=== PATIENT | male | born 1985 | race Caucasian/White ===

== ENCOUNTER 2017-12-31 14:46 | Emergency (ER) | payer SELFPAY ==
--- NOTE | 2017-12-31 15:29 | ED Physician Chart ---
ED Chief Complaint/HPI - Patient Information Date Seen:: 12/31/17 Time Seen:: 15:10 Chief Complaint:: dry, itchy feet History of Present Illness:: Patient's had dry, itchy feet for last 2 weeks. Patient was seen here yesterday under the name Andrew Lai and a CAT scan of the head and cervical spine were done and were read by the radiologist as degenerative changes in the cervical spine; no fracture was seen. Head CT was negative. 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) Review:: Nurse's Note Reviewed ED Review of Systems - Review of Systems General/Constitutional: No fever, No chills, No weight loss, No weakness, No diaphoresis, No edema, No loss of appetite Skin: Skin lesions, Other (see history and physical) Head: No headache, No light-headedness Eyes: No loss of vision, No pain, No diplopia ENT: No earache, No nasal drainage, No sore throat, No tinnitus Neck: No neck pain, No swelling, No thyromegaly, No stiffness, No mass noted Cardio Vascular: No chest pain, No palpitations, No PND, No orthopnea, No edema Pulmonary: No SOB, No cough, No sputum, No wheezing GI: No nausea, No vomiting, No diarrhea, No pain, No melena, No hematochezia, No constipation, No hematemesis G/U: No dysuria, No frequency, No hematuria Musculoskeletal: No bone or joint pain, No back pain, No muscle pain Endocrine: No polyuria, No polydipsia Psychiatric: No prior psych history, No depression, No anxiety, No suicidal ideation Hematopoietic: No bruising, No lymphadenopathy Allergic/Immuno: No urticaria, No angioedema Neurological: No syncope, No focal symptoms, No weakness, No paresthesia, No headache, No seizure, No dizziness, No confusion, No vertigo ED Past Medical History - Past Medical History Past Medical History: No significant medical hx Family History: HTN Social History: Smoker, Alcohol, Illicit Drug Use, Other Employment:: Patient drinks alcohol occasionally and uses crystal meth. Surgical History: None Psychiatricy History: None Medication: None Family Medical History - Family Member Son History Unknown: Yes ED Physical Exam - Physical Examination General/Constitutional: Awake, Well-developed, well-nourished, Alert, No distress, GCS 15, Non-toxic appearing, Ambulatory Head: Atraumatic Eyes: Lids, conjuctiva normal, PERRL, EOMI Other Skin comments:: There is dryness and peeling of the skin of the distal metatarsal arch and plantar surfaces of the toes of both feet; there is some pallor (whiteness) of the skin between the toes especially of the right foot. ENMT: External ears, nose nl, Nasal exam nl, Lips, teeth, gums nl Neck: Nontender, Full ROM w/o pain, No JVD, No nuchal rigidity, No bruit, No mass, No stridor Respiratory: Nl effort/Exclusion, Clear to Auscultation, No Wheeze/Rhonchi/Rales Cardio Vascular: RRR, No murmur, gallop, rubs, NL S1 S2 GI: No tenderness/rebounding/guarding, No organomegaly, No hernia, Normal BS's, Nondistended, No mass/bruits, No McBurney tenderness : No CVA tenderness Extremities: No tenderness or effusion, Full ROM, normal strength in all extremities, No edema, Normal digits & nails Neuro/Psych: Alert/oriented, DTR's symmetric, Normal sensory exam, Normal motor strength, Judgement/insight normal, Mood normal, Normal gait, No focal deficits Misc: Normal back, No paraspinal tenderness ED Septic Shock - . Is Septic Shock (SBP<90, OR Lactate>4 mmol\L) present?: No - <6hrs of presentation: Vital Signs: Vital Signs - 8 hr 12/31/17 14:58 Temp 98.1 F HR 95 RR 16 BP 102/63 O2 Sat % 100 ED Reassessment (Disposition) - Reassessment Reassessment Condition:: Unchanged - Diagnosis Diagnosis:: Tinea pedis; okay to book - Aftercare/Follow up Instructions Aftercare/Follow-Up Instructions:: Refer to Discharge Instructions - Patient Disposition Discharge/Transfer:: Intermediate/Intermediate Condition at Disposition:: Stable, Unchanged
== END 2017-12-31 15:36 | disposition home or self-care (01) ==
LOC: ER 14:46
DX: B35.3 Tinea pedis (principal); F17.200 Nicotine dependence, unspecified, uncomplicated
CPT/HCPCS: Z7502